=== PATIENT | female | born 1940 | race Caucasian/White ===

== ENCOUNTER 2020-09-12 09:15 | Inpatient (IN) | payer MEDICARE, OTHER ==
[~2020-09-12] VITALS: Ht 160 cm; Wt 48.6 kg
[2020-09-12 09:52] LABS: BASOPHILS % (AUTO) 0.6 % (0.0-2.0); EOSINOPHILS % (AUTO) 1.1 % (0.0-6.0); HEMATOCRIT 39 % (33-45); LYMPHOCYTES # (AUTO) 1.2 /CMM (0.8-4.8); MEAN CORPUSCULAR HGB CONC 34 g/dl (31.0-36.0); MEAN CORPUSCULAR VOLUME 93 fL (82-100); MONOCYTES # (AUTO) 0.5 /CMM (0.1-1.30); MONOCYTES % (AUTO) 7.6 % (2.0-12.0); NEUTROPHILS # (AUTO) 4.9 /CMM (1.8-8.9); NEUTROPHILS % (AUTO) 72.7 % (43.0-81.0); PLATELET COUNT (AUTO) 244 /CMM (150-450); RED BLOOD CELL COUNT(AUTO) 4.13 MIL/uL (4.0-5.2); WHITE BLOOD COUNT (AUTO) 6.8 K/uL (4.3-11.0)
--- NOTE | 2020-09-12 09:52 | NUR ---
bibdaughter, c/o chest pressure and sob since yesterday, sent by PMD 5/10 pain scale, 98% on room air. PT AAOX4, VSS. RR EVEN & UNLABORED. DENIES SOB, DIZZINESS, N/V, ARM/JAW/BACK PAIN, WEAKNESS AT THIS TIME. PT SEEN & EVAL'D BY DR. SCOTT. 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 WILL CONT TO MONITOR.
[2020-09-12 10:07] LABS: CALCIUM, SERUM 8.6 mg/dL (8.5-10.1); CARBON DIOXIDE 27 mmol/L (21-32); CHLORIDE 105 mmol/L (98-107); CREATININE 0.6 mg/dL (0.6-1.3); GLUCOSE 92 mg/dL (74-106); POTASSIUM 3.8 mmol/L (3.5-5.1); SODIUM SERUM 142 mmol/L (136-145); UREA NITROGEN, BLOOD 14 mg/dL (7-18)
[2020-09-12] MEDS ORDERED: SERT-439 PO (10:12)
[2020-09-12] MEDS ORDERED: METO25TA4 PO (10:12)
[2020-09-12 10:21] LABS: B-TYPE NATRIURETIC PEPTIDE 366 PG/ML (0-125)
[2020-09-12] MEDS ORDERED: ASPIRIN 81 MG TAB.CHEW PO ONE (10:30)
[2020-09-12] MEDS ORDERED: ASPIRIN 81 MG TAB.CHEW ONE (10:31)
--- NOTE | 2020-09-12 10:51 | NUR ---
PT SITTING UP, VSS. DENIES CP, SOB, DIZZINESS, N/V, WEAKNESS AT THIS TIME. ON TELE, SR. WILL CONT TO MONITOR.
[2020-09-12] MEDS ORDERED: HYDROCODONE/APAP 5/325MG TABLET PO PRN (11:00)
[2020-09-12] MEDS ORDERED: ACETAMINOPHEN 325 MG TABLET PO PRN (11:00)
[2020-09-12] MEDS ORDERED: MORPHINE SULFATE INJ 2 MG/ML DISP.SYRIN IV PRN (11:00)
[2020-09-12] MEDS ORDERED: NITROGLYCERIN 0.4 MG/TAB BOTTLE SL ONE (11:00)
[2020-09-12] MEDS ORDERED: Z GUARD REMEDY 2 OZ OINT TP PRN (11:00)
[2020-09-12] MEDS ORDERED: MAG HYDROX/AL HYDROX/SIMETH 30 ML UDC PO PRN (11:00)
[2020-09-12] MEDS ORDERED: ONDANSETRON HCL/PF 4 MG/2 ML VIAL IVP PRN (11:00)
[2020-09-12] MEDS ORDERED: TEMAZEPAM 15 MG CAPSULE PO PRN (11:00)
[2020-09-12] MEDS ORDERED: MAGNESIUM HYDROXIDE 30 ML UDC PO PRN (11:00)
--- NOTE | 2020-09-12 12:23 | NUR ---
REPORT GIVEN TO MARIAA JAUREGUI FOR ANNABELLE.
[2020-09-12 12:30] VITALS: BP 125/65
--- NOTE | 2020-09-12 13:00 | NUR ---
ms rn received a new admission from er, came in w/ chest pain, awake alert,oriented x4,not in any form of distress, respirations even and unlabored,no sob noted, nsr on monitor, denies pain at this time,all needs attended.
[2020-09-12 16:00] VITALS: BP 117/59
--- NOTE | 2020-09-12 17:43 | NUR ---
ms rn due meds given, on bed,no distress noted.
[2020-09-12] MEDS: ATORVASTATIN 10 MG TABLET PO SCH (18:02)
[2020-09-12] MEDS: SERTRALINE HCL 50 MG TABLET PO SCH (18:02)
[2020-09-12] MEDS: METOPROLOL SUCCINATE 25 MG TAB.SR.24H PO SCH (18:03)
--- NOTE | 2020-09-12 19:00 | NUR ---
ms rn on bed, no distress noted,all needs attended.
--- NOTE | 2020-09-12 19:40 | NUR ---
TELE/RN OPENING NOTE RECEIVED PATIENT RESTING IN BED. AWAKE, ALERT AND ORIENTED X 4. ABLE TO MAKE NEEDS KNOWN. NO COMPLAINTS OF PAIN AT THIS TIME. NO SIGNS OR SYMPTOMS OF RESPIRATORY DISTRESS NOTED. CONTINUES ON TELE WITH NORMAL SINUS RHYTHM. IV ACCESS TO RIGHT AC INTACT AND PATENT. CALL LIGHT WITHIN REACH. ASPIRATION, FALL AND SAFETY PRECAUTIONS MAINTAINED. WILL CONTINUE TO MONITOR.
[2020-09-12 20:00] VITALS: BP 109/57
[2020-09-13] VITALS: BP 123/67
[2020-09-13] MEDS ORDERED: ENOXAPARIN SODIUM 40 MG/0.4 ML DISP.SYRIN SQ SCH ×2 (03:00→09:00)
--- NOTE | 2020-09-13 03:01 | NUR ---
TELE/RN NOTE PATIENT NOTED WITH MULTIPLE PVC'S ON TELE MONITOR. ASSESSED PATIENT. PATIENT ASYMPTOMATIC WITH NO SIGNS OR SYMPTOMS OF DIZZINESS OR SOB. VS: BP 130/69 HR 56. ORDERED STAT EKG. NOTIFIED MD POSEY. LOVENOX ADMINISTERED. AWAITING RESPONSE.
[2020-09-13 04:00] VITALS: BP 115/59
--- NOTE | 2020-09-13 06:00 | NUR ---
TELE/RN CLOSING NOTE PATIENT CURRENTLY RESTING IN BED. AWAKE, ALERT AND ORIENTED X 4. ABLE TO MAKE NEEDS KNOWN. NO COMPLAINTS OF PAIN, SOB, DIZZINESS OR CHEST PAIN NOTED. TELE MONITOR READING SINU [place]IA[place] WITH PVC'S. NO SIGNS OR SYMPTOMS OF DISTRESS NOTED. IV ACCESS TO RIGHT AC INTACT AND PATENT. CALL LIGHT WITHIN REACH. ASPIRATION, FALL AND SAFETY PRECAUTIONS MAINTAINED. WILL ENDORSE PLAN OF CARE TO ONCOMING SHIFT.
[2020-09-13 06:04] LABS: BASOPHILS % (AUTO) 0.6 % (0.0-2.0); HEMATOCRIT 37 % (33-45); HEMOGLOBIN 12.4 g/dL (11.5-14.8); LYMPHOCYTES # (AUTO) 1.5 /CMM (0.8-4.8); LYMPHOCYTES % (AUTO) 27.5 % (20.0-44.0); MEAN CORPUSCULAR HGB CONC 33 g/dl (31.0-36.0); MEAN CORPUSCULAR VOLUME 94 fL (82-100); MONOCYTES # (AUTO) 0.6 /CMM (0.1-1.30); MONOCYTES % (AUTO) 9.9 % (2.0-12.0); NEUTROPHILS # (AUTO) 3.3 /CMM (1.8-8.9); PLATELET COUNT (AUTO) 216 /CMM (150-450); RED BLOOD CELL COUNT(AUTO) 3.95 MIL/uL (4.0-5.2); WHITE BLOOD COUNT (AUTO) 5.6 K/uL (4.3-11.0)
[2020-09-13 06:27] LABS: CALCIUM, SERUM 8.5 mg/dL (8.5-10.1); CREATININE 0.6 mg/dL (0.6-1.3); MAGNESIUM 2.2 mg/dL (1.8-2.4); PHOSPHORUS 3.4 mg/dL (2.5-4.9); POTASSIUM 3.4 mmol/L (3.5-5.1)
[2020-09-13 06:48] LABS: THYROID STIMULATING HORMONE 1.347 uIU/mL (0.358-3.74)
[2020-09-13] MEDS ORDERED: PANTOPRAZOLE 40 MG TABLET.DR PO SCH (07:30)
--- NOTE | 2020-09-13 07:35 | NUR ---
TELE/RN OPENING NOTES RECEIVED PATIENT ON BED, AWAKE ALERT AND ORIENTED X4. PATIENT IN ROOM AIR SATURATING WELL. PATIENT IN NO APPARENT RESPIRATORY DISTRESS NOTED. NO COMPLAINED OF PAIN NOTED AT THIS TIME. TELE MONITOR READING SINUS RHYTHM 62 BPM WITH PAC AND PVC. WILL CONTINUE TO MONITOR.
[2020-09-13 08:00] VITALS: BP 142/76
[2020-09-13 08:23] VITALS: BP 179/98
[2020-09-13] MEDS: METOPROLOL SUCCINATE 25 MG TAB.SR.24H PO SCH (08:23)
[2020-09-13] MEDS: SERTRALINE HCL 50 MG TABLET PO SCH (08:31)
[2020-09-13] MEDS: ATORVASTATIN 10 MG TABLET PO SCH (08:31)
[2020-09-13] MEDS ORDERED: ASPIRIN 81 MG TAB.CHEW PO SCH (09:00)
[2020-09-13] MEDS ORDERED: ENOXAPARIN SODIUM 40 MG/0.4 ML DISP.SYRIN SQ ONE (09:00)
[2020-09-13] MEDS ORDERED: IV NS 0.9% 250 ML IV ONE (10:00)
[2020-09-13] MEDS ORDERED: ASPI-1169 PO (10:00)
[2020-09-13] MEDS ORDERED: POTASSIUM CHLORIDE 20 MEQ TAB.PRT.SR PO ONE (10:00)
--- NOTE | 2020-09-13 10:55 | NUR ---
TELE/RN NOTES 0800 BP 179/98 P 71 METOPROLOL 25MG 1 TAB P.O. DAILY WAS GIVEN LATEST BP 119/73 P 43. WILL CONTINUE TO MONITOR.
--- NOTE | 2020-09-13 15:10 | NUR ---
RN NOTES PATIENT IS ALERT AND ORIENTED X4. PATIENT IS ON ROOM AIR SATURATION 96%. PATIENT IN NO APPARENT RESPIRATORY DISTRESS NOTED. NO COMPLAINED OF PAIN NOTED AT THIS TIME. DISCHARGED INSTRUCTIONS WAS GIVEN AND PATIENT VERBALIZED UNDERSTANDING. PATIENT LEFT THE HOSPITAL IN MEDICALLY STABLE CONDITION MARKETING PLANNER BY AMRIT (DAUGHTER) VIA PRIVATE CAR.
== END 2020-09-13 14:00 | disposition home or self-care (01) | DRG 303 ==
LOC: ER 09:20 → TELE 11:45
PROVIDERS: ADMIT Nurse Practitioner Acute Care; ATTEND Nurse Practitioner Acute Care
DX: I25.10 Atherosclerotic heart disease of native coronary artery without angina pectoris (principal); E44.0 Moderate protein-calorie malnutrition; R64 Cachexia; Z68.1 Body mass index [BMI] 19.9 or less, adult; I10 Essential (primary) hypertension; F32.9 Major depressive disorder, single episode, unspecified; H35.30 Unspecified macular degeneration; Z88.3 Allergy status to other anti-infective agents; Z79.899 Other long term (current) drug therapy; Z87.891 Personal history of nicotine dependence; Z90.13 Acquired absence of bilateral breasts and nipples; Z85.3 Personal history of malignant neoplasm of breast; J44.9 Chronic obstructive pulmonary disease, unspecified; E87.6 Hypokalemia
CPT/HCPCS: 36415; 71045-TC; 80048-TC; 80061-TC; 83735-TC; 83880; 84100-TC; 84443-TC; 84484-TC; 85025-TC; 87081-TC; 93307-TC; C9803; G0378; J1650; J7040

== ENCOUNTER 2020-09-15 18:22 | Emergency (ER) | payer MEDICARE, OTHER ==
[~2020-09-15] VITALS: Ht 160 cm; Wt 52.2 kg
[~2020-09-15 18:22] MED LIST: ASPI-1169 PO; METO25TA4 PO; SERT-439 PO
--- NOTE | 2020-09-15 18:59 | NUR ---
Patient came in to the er c/o forehead hematoma s/p fall, -ko. On room air, breathing evenly and unlabored. Ambulatory with steady gait. Connected to the monitor and pulse ox. kept comfortable, will continue to monitor accordingly.
--- NOTE | 2020-09-15 19:00 | NUR ---
wheeled patient via gurney to ct
--- NOTE | 2020-09-15 19:10 | NUR ---
REC/D REPORT FROM MARIAA SHARP FOR ANNABELLE
--- NOTE | 2020-09-15 19:13 | NUR ---
report given to Yolanda LEROY for [facility]
--- NOTE | 2020-09-15 20:45 | NUR ---
Patient discharged to home in stable condition. Written and verbal after care instructions given. Patient verbalizes understanding of instruction. pT ambulatory with a steady gait. CALLED DAUGHTER, FOREIGN TO AFTER SCHOOL PROGRAM ASSISTANT PT
[2020-09-15 20:51] VITALS: BP 139/78
== END 2020-09-15 20:45 | disposition home or self-care (01) ==
LOC: ER 18:22
DX: S06.0X0A Concussion without loss of consciousness, initial encounter (principal); S00.83XA Contusion of other part of head, initial encounter; S80.12XA Contusion of left lower leg, initial encounter; I10 Essential (primary) hypertension; F32.9 Major depressive disorder, single episode, unspecified; Z98.890 Other specified postprocedural states; Z88.1 Allergy status to other antibiotic agents; Z88.8 Allergy status to other drugs, medicaments and biological substances; Z79.899 Other long term (current) drug therapy; Z79.82 Long term (current) use of aspirin; W18.39XA Other fall on same level, initial encounter; Y93.89 Activity, other specified; Y92.89 Other specified places as the place of occurrence of the external cause; Y99.8 Other external cause status
CPT/HCPCS: 70450-TC